=== PATIENT | female | born 1990 | race Two or more races ===

== ENCOUNTER 2023-11-18 11:18 | Emergency (ER) | payer MEDICAID, OTHER ==
[~2023-11-18] VITALS: Ht 352.8 cm; Wt 90.9 kg
[2023-11-18 11:23] VITALS: BP 138/76; PULSE 105; RESP 18; O2SAT 99
[2023-11-18 11:40] LABS: Urine Bacteria None Seen /hpf (None Seen)
[2023-11-18 12:28] LABS: Urine Blood Negative /uL (Negative); Urine Budding Yeast OCCASIONAL /hpf (None Seen); Urine Clarity Clear (Clear); Urine Color Light-Yellow (Yellow); Urine Protein, UAD Negative (Negative); Urine Specific Gravity 1.016 (1.001-1.035); Urine Urobilinogen Normal (Negative); Urine WBC 3 /hpf (0 - 5); Urine pH 6.5 (5.0-9.0)
== END 2023-11-18 16:50 | disposition left against medical advice (07) ==
LOC: ER 11:18
DX: G90.9 Disorder of the autonomic nervous system, unspecified (principal); R42 Dizziness and giddiness
CPT/HCPCS: 81001